=== PATIENT | female | born 1955 | race African-American/Black ===

== ENCOUNTER 2018-11-25 12:16 | Emergency (ER) | payer MEDICARE, MEDICAID ==
[~2018-11-25] VITALS: Ht 167.6 cm; Wt 95.0 kg
[2018-11-25 14:44] LABS: BASOPHILS % 1.1 % (0.0-2.0); EOSINOPHILS % 1.7 % (0.0-5.0); HEMOGLOBIN. 13.1 g/dL (12.0-16.0); MEAN CORPUSCULAR HEMOGLOBIN 29.1 pg (28.0-32.0); MEAN CORPUSCULAR VOLUME 88.9 fL (81.0-99.0); MONOCYTES % 9.9 % (2.0-8.0); NEUTROPHILS % 51.3 % (40.0-76.0); PLATELET 392 x1000/uL (130-400); RED CELL DISTRIBUTION WIDTH 13.6 % (11.6-14.6)
[2018-11-25 14:50] LABS: CHLORIDE 106 mEq/L (98-107)
[2018-11-25 14:52] LABS: PARTIAL THROMBOPLASTIN TIME 27.4 sec (23.4-31.0); PROTHROMBIN TIME 10.3 sec (9.1-11.1)
[2018-11-25] MEDS ORDERED: SODIUM CHLORIDE 0.9% 1,000 ML IV ONE (15:31)
[2018-11-25] MEDS ORDERED: MECLIZINE 25MG TABLET PO ONE (15:45)
[2018-11-25 17:31] VITALS: BP 138/82
== END 2018-11-25 19:05 | disposition home or self-care (01) ==
LOC: ER 12:16
DX: I10 Essential (primary) hypertension (principal)
CPT/HCPCS: 36415; 70450; 71045; 80053; 83690; 83735; 83880; 84484; 85025; 85610; 85730; 93005; 96360; 99284; J7030; J8597

== ENCOUNTER 2019-08-29 12:31 | Inpatient (IN) | payer MEDICARE, MEDICAID ==
[~2019-08-29] VITALS: Ht 154.9 cm; Wt 102.1 kg
[2019-08-29] MEDS ORDERED: ONDANSETRON HCL 4MG/2ML INJ IV STA (13:31)
[2019-08-29] MEDS ORDERED: SODIUM CHLORIDE 0.9% 1,000 ML IV ONE (13:31)
[2019-08-29 14:23] LABS: BASOPHILS % 0.8 % (0.0-2.0); EOSINOPHILS % 1.2 % (0.0-5.0); HEMATOCRIT. 37.6 % (36.0-48.0); HEMOGLOBIN. 12.3 g/dL (12.0-16.0); LYMPHOCYTES % 39.2 % (20.0-50.0); MEAN CORPUSCULAR HEMOGLOBIN 29.2 pg (28.0-32.0); MEAN CORPUSCULAR VOLUME 89.1 fL (81.0-99.0); MEAN PLATELET VOLUME 9.2 fl (7.4-10.4); MONOCYTES % 8.7 % (2.0-8.0); NEUTROPHILS % 50.1 % (40.0-76.0); PLATELET 318 x1000/uL (130-400); RED BLOOD CELL COUNT 4.21 mill/uL (4.2-5.4); RED CELL DISTRIBUTION WIDTH 14.6 % (11.6-14.6)
[2019-08-29 14:30] LABS: CHLORIDE 111 mEq/L (98-107)
[2019-08-29 22:00] VITALS: BP 154/86
[2019-08-29] MEDS ORDERED: TRIA1TAB94 PO (22:39)
[2019-08-29] MEDS ORDERED: AMIT75TA2 PO (22:39)
[2019-08-29] MEDS ORDERED: ATEN-42 PO (22:39)
[2019-08-29] MEDS ORDERED: ZOLPIDEM TARTRATE 5MG TABLET PO PRN (23:00)
[2019-08-29] MEDS ORDERED: HYDROCODONE/ACETAMINOPHEN 5/325MG TABLET PO PRN (23:00)
[2019-08-30] VITALS: BP 128/63
[2019-08-30 04:00] VITALS: BP 144/80
[2019-08-30 08:00] VITALS: BP 128/62
[2019-08-30 09:55] LABS: BASOPHILS % 0.3 % (0.0-2.0); EOSINOPHILS % 1.6 % (0.0-5.0); HEMATOCRIT. 32.2 % (36.0-48.0); HEMOGLOBIN. 10.9 g/dL (12.0-16.0); LYMPHOCYTES % 44.5 % (20.0-50.0); MEAN CORPUSCULAR HEMOGLOBIN 29.8 pg (28.0-32.0); MEAN CORPUSCULAR VOLUME 87.9 fL (81.0-99.0); MEAN PLATELET VOLUME 7.9 fl (7.4-10.4); MONOCYTES % 10.6 % (2.0-8.0); PLATELET 296 x1000/uL (130-400); RED BLOOD CELL COUNT 3.67 mill/uL (4.2-5.4); RED CELL DISTRIBUTION WIDTH 14.1 % (11.6-14.6)
[2019-08-30] MEDS: ATENOLOL 25MG TABLET PO SCH (10:03)
[2019-08-30] MEDS: SODIUM CHLORIDE 0.9% 1,000 ML IV SCH (10:03)
[2019-08-30 10:06] LABS: CHLORIDE 110 mEq/L (98-107)
[2019-08-30 10:15] LABS: LDL CHOLESTEROL 82 mg/dL (5-100)
[2019-08-30 10:16] LABS: HDL CHOLESTEROL 40 mg/dL (40-59)
[2019-08-30 11:01] LABS: CLARITY URINE CLEAR (CLEAR); COLOR URINE YELLOW (YELLOW); KETONES URINE NEGATIVE (NEGATIVE); LEUKOCYTE ESTERASE URINE NEGATIVE (NEGATIVE); NITRITE URINE NEGATIVE (NEGATIVE); OCCULT BLOOD URINE NEGATIVE (NEGATIVE); PROTEIN URINE NEGATIVE (NEGATIVE); SPECIFIC GRAVITY URINE 1.026 (1.005-1.030); UROBILINOGEN URINE 0.2 E.U./dL (0.2-1.0)
[2019-08-30 11:33] LABS: PHENCYCLIDINE URINE SCREEN NEGATIVE (NEGATIVE)
[2019-08-30 11:35] LABS: *AMPHETAMINES SCREEN URINE NEGATIVE (NEGATIVE); *BARBITURATES SCREEN URINE NEGATIVE (NEGATIVE); *BENZODIAZEPINES SCREEN URINE NEGATIVE (NEGATIVE); *COCAINE SCREEN URINE NEGATIVE (NEGATIVE); CANNABINOID URINE SCREEN NEGATIVE (NEGATIVE)
[2019-08-30 11:36] LABS: METHADONE URINE SCREEN NEGATIVE (NEGATIVE); OPIATES URINE SCREEN NEGATIVE (NEGATIVE)
[2019-08-30 12:00] VITALS: BP 124/45
[2019-08-30] MEDS: AMLODIPINE 2.5MG TABLET PO SCH (13:01)
[2019-08-30 16:00] VITALS: BP 126/66
[2019-08-30 20:15] VITALS: BP 118/48
[2019-08-30] MEDS ORDERED: AMITRIPTYLINE 25MG TABLET PO SCH (21:00)
[2019-08-31 00:42] VITALS: BP 103/51
[2019-08-31] MEDS: SODIUM CHLORIDE 0.9% 1,000 ML IV SCH (01:39)
[2019-08-31 04:40] VITALS: BP 103/58
[2019-08-31 06:57] LABS: BASOPHILS % 0.8 % (0.0-2.0); EOSINOPHILS % 3.5 % (0.0-5.0); HEMATOCRIT. 30.5 % (36.0-48.0); HEMOGLOBIN. 10.1 g/dL (12.0-16.0); LYMPHOCYTES % 45.9 % (20.0-50.0); MEAN CORPUSCULAR HEMOGLOBIN 29.3 pg (28.0-32.0); MEAN CORPUSCULAR VOLUME 88.7 fL (81.0-99.0); MEAN PLATELET VOLUME 8.5 fl (7.4-10.4); MONOCYTES % 10.5 % (2.0-8.0); NEUTROPHILS % 39.3 % (40.0-76.0); PLATELET 280 x1000/uL (130-400); RED BLOOD CELL COUNT 3.44 mill/uL (4.2-5.4); RED CELL DISTRIBUTION WIDTH 14.2 % (11.6-14.6)
[2019-08-31 07:00] LABS: CHLORIDE 110 mEq/L (98-107)
[2019-08-31] MEDS: AMLODIPINE 2.5MG TABLET PO SCH (09:52)
[2019-08-31] MEDS: ATENOLOL 25MG TABLET PO SCH (09:53)
[2019-08-31 15:14] VITALS: BP 139/78
== END 2019-08-31 16:21 | disposition home or self-care (01) | DRG 48 ==
LOC: ER 12:52 → 6WST 17:36 → EDBEDREQ 17:41 → ENRESERV 20:52
PROVIDERS: ADMIT Internal Medicine; ATTEND Internal Medicine
DX: G90.8 Other disorders of autonomic nervous system (principal); E66.01 Morbid (severe) obesity due to excess calories; E87.8 Other disorders of electrolyte and fluid balance, not elsewhere classified; D64.9 Anemia, unspecified; E83.42 Hypomagnesemia; E86.0 Dehydration; I10 Essential (primary) hypertension; Z90.710 Acquired absence of both cervix and uterus; Z71.3 Dietary counseling and surveillance; Z68.41 Body mass index [BMI] 40.0-44.9, adult; A08.4 Viral intestinal infection, unspecified
CPT/HCPCS: 36415; 71045; 80048; 80061; 80305; 81003; 82962; 83735; 83880; 84443; 84484; 93005; 93306; 93970; 97162; 99285; J2405; J7030

== ENCOUNTER → 2023-08-07 | Day surgery (SDC) | payer MEDICARE, OTHER ==
[~2023-08-07] VITALS: Ht 154.9 cm; Wt 113.4 kg
[~2023-08-07] MED LIST: AMIT75TA2 PO; ATEN-42 PO; BALANCED SALT IRRIG SOLN 15ML ONE; BALANCED SALT IRRIG SOLN COMB1 500ML OP NR; CIPROFLOXACIN 0.3% OPHTH SOLN 2.5ML ONE; CYCLOPENTOLATE HCL 1% OPHTH DROPS 2ML RIGHTEYE ONE; FENTANYL CITRATE/PF 50MCG/ML 2ML VIAL ONE; HYALURONATE SODIUM 10 MG/ML 0.55ML SYRINGE IO ONE; LIDOCAINE HCL 2% 5ML SYRINGE IV ONE; MIDAZOLAM HCL 2 MG/2 ML VIAL ONE; NEO/POLYMYX B SULF/DEXAMETH OPHTH OINT 3.5GM ONE; PHENYLEPHRINE HCL 10% OPHTH DROPS 5ML RIGHTEYE ONE; PREDNISOLONE ACETATE 1% OPHTH DROPS 5ML ONE; SODIUM CHLORIDE 0.9% 1,000 ML IV SCH; TETRACAINE 0.5% OPHTH DROPS 4ML ONE; TRIA1TAB94 PO; TROPICAMIDE 1% OPHTH DROPS 15ML RIGHTEYE ONE; TRYPAN BLUE 0.5 ML DISP.SYRIN IO ONE
[2023-08-07 09:46] LABS: CHLORIDE 110 mEq/L (98-107); INDEX HEMOLYSI 1 (1-3); INDEX ICTERIC 1 (1-4); INDEX LIPEMIC 1 (1-3); SODIUM 142 mEq/L (136-145)
[2023-08-07 09:47] LABS: CALCIUM 8.9 mg/dL (8.5-10.1)
[2023-08-07 09:52] LABS: CARBON DIOXIDE 26 mEq/L (21-32); GLUCOSE 106 mg/dL (70-105); UREA NITROGEN BLOOD 18 mg/dL (7-21)
== END | disposition home or self-care (01) ==
LOC: OR 09:11
PROVIDERS: ATTEND Ophthalmology
DX: H25.89 Other age-related cataract (principal); I10 Essential (primary) hypertension; F41.9 Anxiety disorder, unspecified; Z79.899 Other long term (current) drug therapy; Z90.710 Acquired absence of both cervix and uterus; Z98.890 Other specified postprocedural states; Z82.49 Family history of ischemic heart disease and other diseases of the circulatory system; Z83.3 Family history of diabetes mellitus
CPT/HCPCS: 66984; 80048; 36415; J3010; Q9957; J3490 ×2; J2250; A4217; Z7610 ×19; V2632

== ENCOUNTER 2023-12-21 02:21 | Emergency (ER) | payer MEDICARE, OTHER ==
[~2023-12-21] VITALS: Ht 167.6 cm; Wt 95.0 kg
[~2023-12-21 02:21] MED LIST changes: -BALANCED SALT IRRIG SOLN 15ML ONE; -BALANCED SALT IRRIG SOLN COMB1 500ML OP NR; -CIPROFLOXACIN 0.3% OPHTH SOLN 2.5ML ONE; -CYCLOPENTOLATE HCL 1% OPHTH DROPS 2ML RIGHTEYE ONE; -FENTANYL CITRATE/PF 50MCG/ML 2ML VIAL ONE; -HYALURONATE SODIUM 10 MG/ML 0.55ML SYRINGE IO ONE; -LIDOCAINE HCL 2% 5ML SYRINGE IV ONE; -MIDAZOLAM HCL 2 MG/2 ML VIAL ONE; -NEO/POLYMYX B SULF/DEXAMETH OPHTH OINT 3.5GM ONE; -PHENYLEPHRINE HCL 10% OPHTH DROPS 5ML RIGHTEYE ONE; -PREDNISOLONE ACETATE 1% OPHTH DROPS 5ML ONE; -SODIUM CHLORIDE 0.9% 1,000 ML IV SCH; -TETRACAINE 0.5% OPHTH DROPS 4ML ONE; -TROPICAMIDE 1% OPHTH DROPS 15ML RIGHTEYE ONE; -TRYPAN BLUE 0.5 ML DISP.SYRIN IO ONE
[2023-12-21 02:24] VITALS: O2SAT 98
[2023-12-21] MEDS: ACETAMINOPHEN 325MG TABLET PO ONE (03:45)
[2023-12-21 03:46] LABS: BASOPHILS % 0.6 % (0.0-2.0); EOSINOPHILS % 1.1 % (0.0-5.0); HEMATOCRIT. 36.1 % (36.0-48.0); HEMOGLOBIN. 11.8 g/dL (12.0-16.0); LYMPHOCYTES % 14.7 % (20.0-50.0); MEAN CORPUSCULAR HEMOGLOBIN 29.4 pg (28.0-32.0); MEAN CORPUSCULAR HGB CONC 32.8 g/dL (31.0-37.0); MEAN CORPUSCULAR VOLUME 89.6 fL (81.0-99.0); MEAN PLATELET VOLUME 8.5 fl (7.4-10.4); MONOCYTES % 12.9 % (2.0-8.0); NEUTROPHILS % 70.7 % (40.0-76.0); PLATELET 328 x1000/uL (130-400); RED BLOOD CELL COUNT 4.03 mill/uL (4.2-5.4); RED CELL DISTRIBUTION WIDTH 13.6 % (11.6-14.6); WHITE BLOOD COUNT 7.9 x1000/uL (4.5-11.0)
[2023-12-21] MEDS: METOCLOPRAMIDE HCL 10MG/2ML VIAL IV ONE (03:46)
[2023-12-21 04:00] LABS: ALANINE AMINOTRANSFERASE 13 IU/L (10-49); ALBUMIN 4.2 g/dL (3.2-4.8); ASPARTATE AMINOTRANSFERASE 19 IU/L (<34); BILIRUBIN TOTAL 0.6 mg/dL (0.1-1.0); CALCIUM 9.1 mg/dL (8.7-10.4); CARBON DIOXIDE 27 mEq/L (21-32); CHLORIDE 106 mEq/L (98-107); GLUCOSE 103 mg/dL (70-105); POTASSIUM 4.1 mEq/L (3.5-5.1); PROTEIN TOTAL 6.7 g/dL (6.0-8.3); SODIUM 138 mEq/L (136-145); UREA NITROGEN BLOOD 11 mg/dL (9-23)
[2023-12-21 04:01] LABS: ETHANOL BLOOD < 10 mg/dL (<10); TROPONIN I HIGH SENSITIVITY < 4 ng/L (3.0-34)
[2023-12-21] MEDS ORDERED: ACET-2708 MT (05:50)
[2023-12-21 06:35] VITALS: BP 104/44; PULSE 57; RESP 15; TEMP 98.1
== END 2023-12-21 06:52 | disposition home or self-care (01) ==
LOC: ER 02:21
DX: G44.209 Tension-type headache, unspecified, not intractable (principal); I10 Essential (primary) hypertension; Z00.00 Encounter for general adult medical examination without abnormal findings
CPT/HCPCS: 80053; 80320; 83880; 83690; 85025; 84484; 36415; 71045; 70450; 93005; 96374; 99285; J2765; G0480

== ENCOUNTER 2024-01-24 10:16 | Emergency (ER) | payer MEDICARE, OTHER ==
[~2024-01-24] VITALS: Ht 165.1 cm; Wt 91.0 kg
[~2024-01-24 10:16] MED LIST changes: +ACET-2708 MT
[2024-01-24 10:29] VITALS: O2SAT 98
[2024-01-24 10:57] LABS: BASOPHILS % 0.3 % (0.0-2.0); EOSINOPHILS % 0.4 % (0.0-5.0); HEMOGLOBIN. 11.7 g/dL (12.0-16.0); MEAN CORPUSCULAR HEMOGLOBIN 28.2 pg (28.0-32.0); MEAN CORPUSCULAR HGB CONC 32.5 g/dL (31.0-37.0); MEAN CORPUSCULAR VOLUME 86.8 fL (81.0-99.0); MEAN PLATELET VOLUME 7.7 fl (7.4-10.4); MONOCYTES % 12.1 % (2.0-8.0); NEUTROPHILS % 78.2 % (40.0-76.0); PLATELET 337 x1000/uL (130-400); RED BLOOD CELL COUNT 4.14 mill/uL (4.2-5.4); RED CELL DISTRIBUTION WIDTH 13.9 % (11.6-14.6); WHITE BLOOD COUNT 15.5 x1000/uL (4.5-11.0)
[2024-01-24] MEDS ORDERED: VANCOMYCIN 1G PREMIX 200 ML IV ONE (11:00)
[2024-01-24] MEDS ORDERED: CEFTRIAXONE 1GM/50ML 50 ML IV ONE (11:00)
[2024-01-24] MEDS: ACETAMINOPHEN 325MG TABLET PO STA (11:30)
[2024-01-24 11:53] LABS: ALANINE AMINOTRANSFERASE 10 IU/L (10-49); ALBUMIN 4.3 g/dL (3.2-4.8); ASPARTATE AMINOTRANSFERASE 15 IU/L (<34); BILIRUBIN TOTAL 0.9 mg/dL (0.1-1.0); CALCIUM 8.9 mg/dL (8.7-10.4); CARBON DIOXIDE 24 mEq/L (21-32); CHLORIDE 106 mEq/L (98-107); CREATININE 1.1 mg/dL (0.6-1.0); GLUCOSE 126 mg/dL (70-105); POTASSIUM 3.9 mEq/L (3.5-5.1); PROTEIN TOTAL 7.1 g/dL (6.0-8.3); SODIUM 137 mEq/L (136-145); UREA NITROGEN BLOOD 11 mg/dL (9-23)
[2024-01-24 11:54] LABS: TROPONIN I HIGH SENSITIVITY < 4 ng/L (3.0-34)
[2024-01-24] MEDS: CEFTRIAXONE 1GM/50ML 50 ML IV NR (14:29)
[2024-01-24] MEDS: VANCOMYCIN 1G PREMIX 200 ML IV NR (15:09)
[2024-01-24 18:06] VITALS: BP 143/86; PULSE 97; RESP 16; TEMP 98.2
== END 2024-01-24 18:15 | disposition short-term general hospital (02) ==
LOC: ER 10:16 → EDBEDREQ 13:22 → EDBEDREQSVC 13:22 → EDBEDREQTM 13:22 → CANBEDREQ 17:48 → ER 18:15
DX: S70.362A Insect bite (nonvenomous), left thigh, initial encounter (principal); R42 Dizziness and giddiness; R00.0 Tachycardia, unspecified; D72.829 Elevated white blood cell count, unspecified; I10 Essential (primary) hypertension; J45.909 Unspecified asthma, uncomplicated; Z98.890 Other specified postprocedural states; Z90.710 Acquired absence of both cervix and uterus; W57.XXXA Bitten or stung by nonvenomous insect and other nonvenomous arthropods, initial encounter; Y93.89 Activity, other specified; Y92.89 Other specified places as the place of occurrence of the external cause; Y99.8 Other external cause status
CPT/HCPCS: 99285; 96365; 71045; 96367; 80053; 83605; 85025; 87040; 84484; 36415; 84145; J0696; J3370

== ENCOUNTER 2024-04-18 07:59 | Emergency (ER) | payer MEDICARE, OTHER ==
[~2024-04-18] VITALS: Ht 162.6 cm; Wt 85.0 kg
[2024-04-18 08:03] VITALS: BP 142/55; PULSE 92; RESP 16; TEMP 98.6; O2SAT 98
[2024-04-18 08:52] LABS: HEMATOCRIT. 31.6 % (36.0-48.0); HEMOGLOBIN. 9.7 g/dL (12.0-16.0); MEAN CORPUSCULAR HEMOGLOBIN 24.2 pg (28.0-32.0); MEAN CORPUSCULAR HGB CONC 30.6 g/dL (31.0-37.0); MEAN CORPUSCULAR VOLUME 78.9 fL (81.0-99.0); MEAN PLATELET VOLUME 7.5 fl (7.4-10.4); PLATELET 510 x1000/uL (130-400); RED BLOOD CELL COUNT 4.01 mill/uL (4.2-5.4); RED CELL DISTRIBUTION WIDTH 15.5 % (11.6-14.6); WHITE BLOOD COUNT 4.6 x1000/uL (4.5-11.0)
[2024-04-18 08:53] LABS: DIFFERENTIAL COMMENT 1
[2024-04-18 09:02] LABS: CHLORIDE 112 mEq/L (98-107); POTASSIUM 4.3 mEq/L (3.5-5.1); SODIUM 141 mEq/L (136-145)
[2024-04-18 09:03] LABS: CARBON DIOXIDE 25 mEq/L (21-32); INR 0.9; PROTHROMBIN TIME 10.5 sec (9.6-11.0)
[2024-04-18 09:04] LABS: CALCIUM 9.1 mg/dL (8.7-10.4)
[2024-04-18 09:08] LABS: CREATININE 0.9 mg/dL (0.6-1.0)
[2024-04-18 09:09] LABS: GLUCOSE 103 mg/dL (70-105); TROPONIN I HIGH SENSITIVITY 6 ng/L (3.0-34); UREA NITROGEN BLOOD 18 mg/dL (9-23)
[2024-04-18 09:10] LABS: AMMONIA 27 uMol/L (<32)
[2024-04-18 09:13] LABS: THYROID STIMULATING HORMONE 1.83 uIU/mL (0.55-4.78)
[2024-04-18 12:07] LABS: ANISOCYTOSIS 1+; HYPOCHROMASIA 1+; MICROCYTOSIS 1+; PLATELET ESTIMATE INCREASED
== END 2024-04-18 11:01 | disposition admitted as inpatient to this hospital (09) ==
LOC: ER 08:42 → CANBEDREQ 22:44
DX: R42 Dizziness and giddiness (principal); I10 Essential (primary) hypertension; Z90.710 Acquired absence of both cervix and uterus
CPT/HCPCS: 36415; 71045; 80048; 82140; 83880; 84443; 84484; 85025; 93005; 99285

== ENCOUNTER 2025-09-12 13:54 | Emergency (ER) | payer MEDICARE, OTHER ==
[~2025-09-12] VITALS: Ht 167.6 cm; Wt 127.0 kg
[~2025-09-12 13:54] MED LIST changes: -AMIT75TA2 PO; +AMIT75TA6 PO
[2025-09-12 13:55] VITALS: O2SAT 98
[2025-09-12 14:41] LABS: BASOPHILS % 0.5 % (0.0-2.0); EOSINOPHILS % 1.1 % (0.0-5.0); HEMATOCRIT. 36.8 % (36.0-48.0); HEMOGLOBIN. 12.0 g/dL (12.0-16.0); LYMPHOCYTES % 20.0 % (20.0-50.0); MEAN PLATELET VOLUME 8.2 fl (7.4-10.4); MONOCYTES % 11.7 % (2.0-8.0); NEUTROPHILS % 66.7 % (40.0-76.0); PLATELET 408 x1000/uL (130-400); RED BLOOD CELL COUNT 4.29 mill/uL (4.2-5.4); RED CELL DISTRIBUTION WIDTH 15.3 % (11.6-14.6)
[2025-09-12 14:52] LABS: CREATININE 0.9 mg/dL (0.6-1.0); UREA NITROGEN BLOOD 12 mg/dL (9-23)
[2025-09-12 14:53] LABS: TROPONIN I HIGH SENSITIVITY < 4 ng/L (3.0-34)
[2025-09-12 14:54] LABS: ASPARTATE AMINOTRANSFERASE 20 IU/L (<34); BILIRUBIN DIRECT 0.2 mg/dL (<=3.0)
[2025-09-12 14:55] LABS: BILIRUBIN TOTAL 0.6 mg/dL (0.1-1.0); PROTEIN TOTAL 6.5 g/dL (6.0-8.3)
[2025-09-12] MEDS ORDERED: BENZ200C52 MT (15:57)
[2025-09-12] MEDS ORDERED: ONDA4TAB50 MT (15:57)
[2025-09-12 16:50] VITALS: BP 114/54; PULSE 74; RESP 18; TEMP 36.4; O2SAT 100
[2025-09-12] MEDS: MAGNESIUM/ALUMINUM HYDROXIDE/SIMETHICONE 30ML UDC PO ONE (16:51)
== END 2025-09-12 17:10 | disposition home or self-care (01) ==
LOC: ER 14:07
DX: B34.9 Viral infection, unspecified (principal); R07.89 Other chest pain; R05.9 Cough, unspecified; R06.02 Shortness of breath; E11.9 Type 2 diabetes mellitus without complications; I10 Essential (primary) hypertension; I46.9 Cardiac arrest, cause unspecified; M19.90 Unspecified osteoarthritis, unspecified site; Z79.899 Other long term (current) drug therapy; Z90.710 Acquired absence of both cervix and uterus
CPT/HCPCS: 36415; 71045; 80048; 80076; 83880; 84484; 85025; 93005; 99285